=== PATIENT | male | born 1945 | race Caucasian/White ===

== ENCOUNTER → 2016-11-17 | Outpatient (CLI) | payer MEDICARE, BC ==
[2016-11-17 11:42] LABS: HEMOGLOBIN 14.4 gm/dl (14.0-17.5); RED BLOOD COUNT 4.76 M/UL (4.20-5.50); WHITE BLOOD COUNT 4.8 K/UL (4.5-11.0)
== END ==
LOC: LAB 11:11
PROVIDERS: Nurse Practitioner Family
DX: J45.40 Moderate persistent asthma, uncomplicated (principal); J30.89 Other allergic rhinitis; D83.9 Common variable immunodeficiency, unspecified; R06.2 Wheezing; T78.1XXA Other adverse food reactions, not elsewhere classified, initial encounter; R05 Cough
CPT/HCPCS: 36415; 82784; 82787; 85025

== ENCOUNTER → 2017-04-25 | Outpatient (CLI) | payer MEDICARE, BC ==
[2017-04-25 13:14] LABS: HEMOGLOBIN 14.5 gm/dl (14.0-17.5); RED BLOOD COUNT 4.86 M/UL (4.20-5.50); WHITE BLOOD COUNT 7.5 K/UL (4.5-11.0)
== END ==
LOC: LAB 11:28
PROVIDERS: Nurse Practitioner Family
DX: J45.40 Moderate persistent asthma, uncomplicated (principal); D83.9 Common variable immunodeficiency, unspecified; D80.3 Selective deficiency of immunoglobulin G [IgG] subclasses
CPT/HCPCS: 36415; 82784; 82787; 85025